=== PATIENT | female | born 2000 | race Two or more races ===

== ENCOUNTER 2020-02-25 10:11 | Emergency (ER) | payer SELFPAY ==
[~2020-02-25] VITALS: Ht 170.2 cm; Wt 72.1 kg
[2020-02-25 10:26] VITALS: BP 129/92
== END 2020-02-25 11:18 | disposition home or self-care (01) ==
LOC: ER 10:11
DX: U07.1 COVID-19 (principal); R06.02 Shortness of breath
CPT/HCPCS: 36415; 71045; 87426